=== PATIENT | female | born 1970 | race Caucasian/White ===

== ENCOUNTER 2017-05-09 12:50 | Emergency (ER) | payer OTHER ==
[~2017-05-09] VITALS: Ht 157.5 cm; Wt 64.9 kg
[2017-05-09 13:50] VITALS: BP 107/65
[2017-05-09] MEDS ORDERED: DEXAMETHASONE 10 MG/ML VIAL IM ONE (16:35)
== END 2017-05-09 17:16 | disposition left against medical advice (07) ==
LOC: MED 12:50
DX: M79.652 Pain in left thigh (principal); E78.5 Hyperlipidemia, unspecified; Z88.1 Allergy status to other antibiotic agents
CPT/HCPCS: 96372; 99283; J1100